=== PATIENT | female | born 1965 | race Caucasian/White ===

== ENCOUNTER 2022-07-16 14:24 | Outpatient (CLI) | payer SELFPAY | END 2022-07-16 14:25 | disposition critical access hospital (66) | LOC: EMS 14:24 | DX: R55 Syncope and collapse (principal); T39.315A Adverse effect of propionic acid derivatives, initial encounter; R00.0 Tachycardia, unspecified; R11.0 Nausea | CPT/HCPCS: A0425; A0427 ==

== ENCOUNTER 2022-07-16 14:40 | Emergency (ER) | payer OTHER ==
[2022-07-16] MEDS ORDERED: DEXAMETHASONE 10 MG/ML VIAL IVP STA (14:48)
[2022-07-16] MEDS ORDERED: diphenhydrAMINE INJ 50 MG/ML VIAL IVP STA ×2 (14:48→15:48)
--- NOTE | 2022-07-16 14:49 | ED Physician Documentation ---
History of Present Illness - Stated complaint Stated Complaint: ALLERGIC REACTION - History obtained from History obtained from: Patient, Family (sister and ) - History of Present Illness Timing: Enter time, Today - Additonal information Additional information: 57-year-old Brigid Garcia has a known allergy to naproxen and today she took some Aleve. She took the Aleve for general body aches and pains and shortly after became short of breath and faint feeling. She is attended to by the ambulance administered epinephrine in route to the hospital. She states this reaction is worse than what she has had previously. She denies any recent illness. Review of Systems Constitutional: denies: Fever Eyes: denies: Decreased vision Ears: denies: Ear pain Nose: denies: Rhinorrhea / runny nose, Congestion Throat: denies: Sore throat Cardiac: reports: Chest pain / pressure (now) Respiratory: reports: Dyspnea (now), Cough GI: reports: Nausea, Other (urge to deficate). denies: Abdominal Pain, Vomiting, Constipation, Diarrhea : denies: Dysuria, Frequency Skin: denies: Rash Musculoskeletal: reports: Back pain PD PAST MEDICAL HISTORY - Present Medications Home Medications: Ambulatory Orders Medication Instructions Recorded Confirmed predniSONE [Deltasone] 40 mg PO DAILY 5 Days #10 tablet 07/16/22 - Allergies Allergies/Adverse Reactions: Allergies Allergy/AdvReac Type Severity Reaction Status Date / Time NSAIDS (Non-Steroidal Allergy Anaphylaxis Verified 07/16/22 14:46 Anti-Inflamma PD ED PE NORMAL - Vitals Vital signs reviewed: Yes (Hypotensive) - General General: Alert and oriented X 3, Well developed/nourished, Other (prefers eyes closed wimpers in pain periodically) - HEENT HEENT: Atraumatic, PERRL, EOMI - Neck Neck: Supple, no meningeal sign - Cardiac Cardiac: RRR, No murmur - Respiratory Respiratory: No respiratory distress, Clear bilaterally - Abdomen Abdomen: Normal bowel sounds, Soft, Non tender, Non distended, No organomegaly - Back Back: No CVA TTP, No spinal TTP - Derm Derm: Normal color, Warm and dry, Other (initially clear as visit progesses erythema evolves. 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, No motor deficit, No sensory deficit, Normal speech Eye Opening: Spontaneous Motor: Obeys Commands Verbal: Oriented GCS Score: 15 - Psych Psych: Normal mood, Normal affect Results - Vitals Vitals: Vital Signs - 24 hr 07/16/22 07/16/22 07/16/22 14:46 15:00 16:13 Temperature 36.5 C Heart Rate 96 94 85 Respiratory 16 32 H 14 Rate Blood Pressure 70/50 L 81/62 L 92/58 L O2 Saturation 92 98 100 If not protocol 2 2 : Oxygen Flow, liters/minute 07/16/22 18:25 Temperature Heart Rate 81 Respiratory 10 L Rate Blood Pressure 104/69 O2 Saturation 100 If not protocol : Oxygen Flow, liters/minute Oxygen O2 Source Room air - EKG (time done) 1449 Rate: Rate (enter#) (90) Rhythm: NSR Intervals: Prolonged QT Ischemia: ST depression (minimal ) Compare to prior EKG: Old EKG unavailable Computer interpretation: Agree with computer - Labs Labs: Laboratory Tests 07/16/22 07/16/22 07/16/22 15:20 15:20 15:20 WBC 10.8 RBC 4.68 Hgb 12.6 Hct 40.4 MCV 86.3 MCH 26.9 L MCHC 31.2 L RDW 14.4 Plt Count 359 MPV 9.6 Neut # (Auto) 7.7 H Lymph # (Auto) 2.7 Coffee # (Auto) 0.3 Eos # (Auto) 0.1 Baso # (Auto) 0.0 Absolute Nucleated RBC 0.00 Nucleated RBC % 0.0 Sodium 139 Potassium 3.0 L Chloride 104 Carbon Dioxide 25 Anion Gap 10.0 BUN 16 Creatinine 0.9 Estimated GFR (MDRD) 65 L Glucose 147 H Lactic Acid 1.9 Calcium 8.8 Total Bilirubin 0.8 AST 22 ALT 22 Alkaline Phosphatase 63 Total Protein 6.2 L Albumin 3.5 Globulin 2.7 Albumin/Globulin Ratio 1.3 Lipase 59 H - Rads (name of study) chest Radiology: Prelim report reviewed (Impression: A portable chest within normal limits for age.), EMP read indepedently Procedures - IVC sono (time) 04756 Bedside IVC sono: IVC measures (cm) (1.23), Dehydration (est 1 liter deficit after one liter given) PD Medical Decision Making - ED course Complexity details: reviewed old records, reviewed results, re-evaluated patient, considered differential, d/w patient Reviewed Lab Results: We ordered a complete blood count with normal white blood cell count normal hemoglobin and hematocrit and normal platelets. We also ordered and reviewed the patient's electrolytes kidney and liver function and found her potassium to be low at 3.0. Drug Therapy Requiring Monitoring for Toxicity: This patient is administered intravenous dexamethasone and diphenhydramine as well as an IM dose of epinephrine. She remained on a sprayer operator she did have prolongation of her QT interval and a low potassium. Her potassium was replaced intravenously and an oral dose was administered as well. ED course: 57-year-old female presented to the emergency department with allergic reaction to Aleve. She was treated in the ambulance with epinephrine and on arrival to the emergency department she appears akathetic and continues to have waves of pain swelling in her throat and chest and dyspnea. She is administered dexamethasone and diphenhydramine with some improvement she has some swelling of her tongue eventually and is administered a second dose of epinephrine with improvement. Patient presented to the emergency department initially hypotensive and hypoxic and she was administered oxygen and saline. She was found to be volume depleted on interrogation of the inferior vena cava. She received a total of 1400 mL of saline at the time of discharge. She was markedly improved after 4 hours in the emergency department. She did have soporific effect of the diphenhydramine. I have asked the patient to take Benadryl every 6 hours for the next 2 days and to fill a prescription for prednisone 40 mg daily for 5 days to begin tomorrow. Departure - Departure Disposition: 01 Home, Self Care Clinical Impression: Allergic reaction to nonsteroidal anti-inflammatory drug (NSAID) Instructions: ED Drug React Allergic Follow-Up: [facility] [Provider Group] Prescriptions: predniSONE [Deltasone] 40 mg PO DAILY 5 Days #10 tablet Comments: Brigid today looks like you had a bad reaction to Aleve. The recommendation is to (obviously) stay away from this medication or any medications like it. I would like you to take Benadryl 25 mg every 6 hours for the next 2 days. In addition I have been E scribed some prednisone to the [facility] in [place] to be taken for the next 5 days.
[2022-07-16] MEDS ORDERED: SODIUM CHLORIDE 0.9% 1,000 ML IV STA ×2 (15:05→15:21)
--- NOTE | 2022-07-16 15:13 | XRAY Report ---
PROCEDURE: Chest 1 View X-Ray INDICATIONS: chest pain TECHNIQUE: One view of the chest was acquired. COMPARISON: None. FINDINGS: Surgical changes and devices: None. Lungs and pleura: No pleural effusions or pneumothorax. Lungs are clear. Mediastinum: Mediastinal contours appear normal. Heart size is normal. Bones and chest wall: No suspicious bony lesions. Overlying soft tissues appear unremarkable. IMPRESSION: Portable chest within normal limits for age. Reviewed by: aMc Parham MD on 07/16/2022 2:12 PM [facility] Approved by: Mac Parham MD on 07/16/2022 2:12 PM [facility] Station ID: [id number]
[2022-07-16 15:29] LABS: BASOPHILS % (AUTO) 0.2 %; EOSINOPHILS # (AUTO) 0.1 10^3/uL (0.0-0.7); HCT - HEMATOCRIT 40.4 % (37.0-47.0); HGB - HEMOGLOBIN 12.6 g/dL (12.0-16.0); LYMPHOCYTES # (AUTO) 2.7 10^3/uL (1.5-3.5); LYMPHOCYTES % (AUTO) 24.7 %; MEAN CORPUSCULAR HEMOGLOBIN 26.9 pg (27.0-31.0); MEAN CORPUSCULAR HGB CONC 31.2 g/dL (32.0-36.0); MEAN CORPUSCULAR VOLUME 86.3 fL (81.0-99.0); MEAN PLATELET VOLUME 9.6 fL (7.9-10.8); MONOCYTES # (AUTO) 0.3 10^3/uL (0.0-1.0); MONOCYTES % (AUTO) 2.3 %; NEUTROPHILS # (AUTO) 7.7 10^3/uL (1.5-6.6); NEUTROPHILS % (AUTO) 71.3 %; PLT - PLATELET COUNT 359 10^3/uL (130-450); RED BLOOD COUNT 4.68 10^6/uL (4.20-5.40); RED CELL DISTRIBUTION WIDTH 14.4 % (12.0-15.0); WHITE BLOOD COUNT 10.8 x10^3/uL (4.8-10.8)
[2022-07-16 15:43] LABS: ALBUMIN 3.5 g/dL (3.2-5.5); ALBUMIN/GLOBULIN RATIO 1.3 (1.0-2.2); BILIRUBIN,TOTAL 0.8 mg/dL (0.2-1.0); CALCIUM 8.8 mg/dL (8.5-10.3); CREATININE 0.9 mg/dL (0.4-1.0); TOTAL PROTEIN 6.2 g/dL (6.7-8.2)
[2022-07-16] MEDS ORDERED: EPINEPHrine 1 MG/ML AMP IM STA (15:48)
[2022-07-16] MEDS ORDERED: POTASSIUM CHLOR 10 MEQ/100 ML 10 MEQ/100 ML BAG IV ONE (16:30)
[2022-07-16 19:01] VITALS: BP 108/65
== END 2022-07-16 19:00 | disposition home or self-care (01) ==
LOC: EDUNIT# → EDBD → ED 14:40
DX: R07.0 Pain in throat (principal); R07.9 Chest pain, unspecified; R06.00 Dyspnea, unspecified; I95.2 Hypotension due to drugs; R09.02 Hypoxemia; G25.71 Drug induced akathisia; T39.315A Adverse effect of propionic acid derivatives, initial encounter; E87.6 Hypokalemia; E86.0 Dehydration
CPT/HCPCS: 36415; 71045; 80053; 83605; 83690; 85025; 87040; 93005; 96361; 96372; 96374; 96375; 96376; 99284; 99285; J1200

== ENCOUNTER 2023-03-16 14:59 | Emergency (ER) | payer SELFPAY ==
[2023-03-16] MEDS ORDERED: SODIUM CHLORIDE 0.9% 1,000 ML IV STA (15:26)
[2023-03-16] MEDS ORDERED: HYDROmorphone 1 MG/ML CARPUJECT IVP STA ×3 (15:26→18:37)
[2023-03-16] MEDS ORDERED: ONDANSETRON 4 MG/2 ML VIAL IVP STA (15:26)
--- NOTE | 2023-03-16 15:29 | ED Physician Documentation ---
History of Present Illness - Stated complaint Stated Complaint: LOWER ABD PX,NAUSEA - Chief complaint Chief Complaint: Abd Pain - Additonal information Additional information: 57-year-old female presents emergency department for evaluation of acute generalized abdominal pain and discomfort. She has had some nausea but no vomiting. Has the urge to defecate but has not had any output. Patient states that several years ago she had a similar episode and was seen in an emergency department with told that she may have been having intussusception. However analgesia resolve the symptoms. Patient states this feels better. No pertinent past surgical history otherwise. Endorses subjective fevers and chills. No dysuria. Review of Systems Constitutional: reports: Fever Throat: reports: Reviewed and negative Respiratory: reports: Reviewed and negative GI: reports: Abdominal Pain, Nausea. denies: Vomiting : reports: Reviewed and negative Skin: reports: Reviewed and negative Musculoskeletal: reports: Reviewed and negative PD PAST MEDICAL HISTORY - Present Medications Home Medications: Ambulatory Orders Medication Instructions Recorded Confirmed predniSONE [Deltasone] 40 mg PO DAILY 5 Days #10 tablet 07/16/22 polyethylene glycoL 3350(BULK) 17 gm PO DAILY PRN #1 each 03/16/23 [Miralax] - Allergies Allergies/Adverse Reactions: Allergies Allergy/AdvReac Type Severity Reaction Status Date / Time NSAIDS (Non-Steroidal Allergy Anaphylaxis Verified 03/16/23 15:03 Anti-Inflamma PD ED PE NORMAL - General General: No: No acute distress (appears uncomfortable ) - HEENT HEENT: Atraumatic, Moist mucous membranes - Neck Neck: Supple, no meningeal sign, No adenopathy - Cardiac Cardiac: RRR, Strong equal pulses - Respiratory Respiratory: No respiratory distress, Clear bilaterally - Abdomen Abdomen: Normal bowel sounds, Soft. No: Non tender (generalized abdominal pain without guarding or rebound) - Back Back: No CVA TTP - Derm Derm: Normal color, Warm and dry, No rash - Extremities Extremities: No deformity - Neuro Neuro: Alert and oriented X 3 Eye Opening: Spontaneous Motor: Obeys Commands Verbal: Oriented GCS Score: 15 Results - Vitals Vitals: Vital Signs - 24 hr 03/16/23 03/16/23 03/16/23 15:03 17:06 19:00 Temperature 36.5 C Heart Rate 100 96 74 Respiratory 16 18 16 Rate Blood Pressure 110/60 113/67 97/76 O2 Saturation 99 98 98 Oxygen O2 Source Room air - Labs Labs: Laboratory Tests 03/16/23 03/16/23 15:30 15:30 WBC 7.1 RBC 4.97 Hgb 13.8 Hct 43.2 MCV 86.9 MCH 27.8 MCHC 31.9 L RDW 14.0 Plt Count 435 MPV 9.0 Neut # (Auto) 5.1 Lymph # (Auto) 1.4 L [place] # (Auto) 0.4 Eos # (Auto) 0.1 Baso # (Auto) 0.0 Absolute Nucleated RBC 0.00 Nucleated RBC % 0.0 Sodium 135 Potassium 3.8 Chloride 103 Carbon Dioxide 27 Anion Gap 5.0 L BUN 17 Creatinine 0.7 Estimated GFR (MDRD) 87 L Glucose 109 H Calcium 10.1 Total Bilirubin 0.5 AST 12 ALT 11 Alkaline Phosphatase 86 Total Protein 7.3 Albumin 4.1 Globulin 3.2 Albumin/Globulin Ratio 1.3 Lipase 33 - Rads (name of study) CT abd Relevant Findings:: Final report received (Negative for small bowel obstruction. No findings of intussusception are seen. Moderate amount of stool within the colon. Please correlate with clinical constipation. Normal appendix is seen.) PD Medical Decision Making - ED course Complexity details: reviewed results, re-evaluated patient, d/w patient ED course: now that she is 57-year-old female presents emergency department for evaluation of generalized abdominal discomfort. She has had some nausea but no vomiting. States she was told several years ago that she may have had an intussusception that self resolved. She does report history of irritable bowel syndrome. States she has difficulty pooping and usually uses prune juice. It is unclear when her last bowel movement was. Presentation she does have some generalized though nonperitoneal abdominal discomfort. Her vital signs show no fever, tachycardia or worrisome vital sign derangement. I did obtain CBC, electrolytes. Per my interpretation no acute worrisome abnormalities were noted. Specifically no leukocytosis. A CT of the abdomen was done that showed no small bowel obstruction. There was A MODERATE amount of stool within the colon which is most likely consistent with constipation. Here in the emergency department the patient did receive a liter of IV fluids. She did require Dilaudid 3 mg in total for analgesia. I reevaluated the patient at the bedside though she continues to have abdominal pain it is not peritoneal. It without vomiting of fevers or leukocytosis I do not feel that she needs an emergent surgical evaluation. We discussed routine ways to manage constipation including MiraLAX. She did request her first dose to be administered here. She is advised to begin taking it daily until she has 2-3 watery bowel movements. At this time she is discharged home in stable condition with usual emergent return precautions discussed for worsening symptoms Departure - Departure Disposition: Home, Self Care Clinical Impression: Abdominal pain Qualifiers: Abdominal location: generalized Qualified Code(s): R10.84 - Generalized abdominal pain Constipation Qualifiers: Constipation type: unspecified constipation type Qualified Code(s): K59.00 - Constipation, unspecified Condition: Stable Record reviewed to determine appropriate education?: Yes Instructions: ED Constipation Prescriptions: polyethylene glycoL 3350(BULK) [Miralax] 17 gm PO DAILY PRN #1 each PRN Reason: Constipation Comments: Brigid you are seen today for abdominal pain. Your labs today in the emergency department were essentially normal. The CT scan did not show any bowel obstruction or intussusception. However you do have a large amount of stool within your colon. This is consistent with constipation. You do report some bowel irregularity. I would like you to begin taking MiraLAX each day. This will help promote bowel movements but may take 24 to 48 hours. Over next 24 to 48 hours drink clear liquids only. Once you have a few adequate bowel movements you can resume a normal diet. You may want to increase the amount of fiber you take this can help reduce constipation. Return to the emergency department if you find you are having worsening symptoms, have uncontrolled vomiting. Otherwise I like you to follow closely with your primary care doctor. You would benefit from referral to GI for longer-term evaluation of your bowel irregularity as well as a colonoscopy to rule out colon cancer. Forms: PCP List
[2023-03-16 15:37] LABS: BASOPHILS % (AUTO) 0.3 %; EOSINOPHILS # (AUTO) 0.1 10^3/uL (0.0-0.7); EOSINOPHILS % (AUTO) 1.1 %; HCT - HEMATOCRIT 43.2 % (37.0-47.0); HGB - HEMOGLOBIN 13.8 g/dL (12.0-16.0); LYMPHOCYTES # (AUTO) 1.4 10^3/uL (1.5-3.5); LYMPHOCYTES % (AUTO) 19.8 %; MEAN CORPUSCULAR HEMOGLOBIN 27.8 pg (27.0-31.0); MEAN CORPUSCULAR HGB CONC 31.9 g/dL (32.0-36.0); MEAN CORPUSCULAR VOLUME 86.9 fL (81.0-99.0); MONOCYTES # (AUTO) 0.4 10^3/uL (0.0-1.0); MONOCYTES % (AUTO) 5.7 %; NEUTROPHILS # (AUTO) 5.1 10^3/uL (1.5-6.6); NEUTROPHILS % (AUTO) 72.7 %; PLT - PLATELET COUNT 435 10^3/uL (130-450); RED BLOOD COUNT 4.97 10^6/uL (4.20-5.40); WHITE BLOOD COUNT 7.1 x10^3/uL (4.8-10.8)
[2023-03-16 16:07] LABS: ALBUMIN 4.1 g/dL (3.2-5.5); ALBUMIN/GLOBULIN RATIO 1.3 (1.0-2.2); BILIRUBIN,TOTAL 0.5 mg/dL (0.2-1.0); CALCIUM 10.1 mg/dL (8.5-10.3); CREATININE 0.7 mg/dL (0.6-1.3); POTASSIUM 3.8 mmol/L (3.5-4.5); TOTAL PROTEIN 7.3 g/dL (6.4-8.9)
--- NOTE | 2023-03-16 18:53 | CT Report ---
PROCEDURE: ABDOMEN/PELVIS W INDICATIONS: lower abd pain; ? SBO or intasussecption CONTRAST: Opti 320 100ml TECHNIQUE: After the administration of IV contrast, 5 mm thick sections acquired from the diaphragms to the symp hysis. 5 mm thick coronal and sagittal reformats were acquired. For radiation dose reduction, the f ollowing was used: automated exposure control, adjustment of mA and/or kV according to patient size. COMPARISON: None. FINDINGS: Image quality: Motion artifact is noted. Lung bases and heart: Unremarkable. Liver: No solid mass. Gallbladder and biliary tree: Within normal limits. Spleen: No splenomegaly. Pancreas: No pancreatic ductal dilation. Adrenals: No adrenal nodule. Kidneys and ureters: No hydronephrosis. No renal cystic lesion which requires follow up. No solid mas s. Bowel and peritoneum: No dilated loops of small bowel are seen. No findings of intussusception can be seen. There is a moderate volume of stool seen within the colon. The stomach demonstrates no significant abnormality. A normal appendix is incidentally noted. Lymph nodes: No central or retroperitoneal adenopathy. Vessels: No infrarenal aortic aneurysm. Atherosclerotic calcification is seen. PELVIS Reproductive organs: This patient is status post hysterectomy. No adnexal masses can be seen. Bladder: No abnormal wall thickening, accounting for underdistension. Pelvic lymph nodes: No pelvic adenopathy by size criteria. Bones: No aggressive osseous abnormality. Mild levoconvex scoliotic curvature is seen. Focal L5-S1 d egenerative change is seen, with grade 1 anterolisthesis and moderate to severe disc space narrowing. Other: No significant ventral or inguinal hernia. IMPRESSION: Negative for small bowel obstruction. No findings of intussusception are seen. There is a moderate amount of stool seen within the colon. Please correlate with clinical constipatio n. A normal appendix is seen. Additional findings: Hysterectomy Focal L5-S1 degenerative change Reviewed by: Mac Parham MD on 03/16/2023 5:52 PM [facility] Approved by: Mac Parham MD on 03/16/2023 5:52 PM [facility] Station ID: [id number]
[2023-03-16] MEDS ORDERED: polyethylene glycoL 3350 17 GM PACKET PO STA (19:22)
[2023-03-16] MEDS ORDERED: IOVERSOL 320 100 ML VIAL IVP ONE (19:36)
[2023-03-16 20:23] VITALS: BP 110/78; O2SAT 97
== END 2023-03-16 20:31 | disposition home or self-care (01) ==
LOC: ED 14:59
DX: R10.84 Generalized abdominal pain (principal); K59.00 Constipation, unspecified
CPT/HCPCS: 36415; 74177; 80053; 83690; 85025; 96374; 96375; 96376; 99284; A9270; J1170; Q9967